=== PATIENT | female | born 1960 | race African-American/Black ===

== ENCOUNTER 2019-09-14 00:58 | Inpatient (IN) ==
[2019-09-14] MEDS ORDERED: MORPHINE IV ONE (01:53)
[2019-09-14] MEDS ORDERED: ZOFRAN IV ONE (02:51)
--- NOTE | 2019-09-14 03:34 | PROVIDER DOCUMENTATION ---
HPI-Musculoskeletal Pain/Inj - GENERAL Chief Complaint: Extremity Injury Stated Complaint: fall Time Seen by Provider: 09/14/19 01:07 Source: patient, family, EMS - HX OF PRESENT ILLNESS-MUSKULOSKELTAL Nature of Presenting Problem: Patient is a 59 yo F with PMH of MS, osteoporosis, HTN, chronic asymmetric lower extremity edema (> 3 years per patient and family at bedside), arthritis, who was BIBEMS due to right knee injury. Patient uses a walker to ambulate at home and a wheelchair when outside of her home. 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 worse with: movement Any recent injury?: Yes (RLE hyperextension) Locality of Occurance: Home Similar Symptoms Previously?: No Recently seen or treated by another doctor?: No - FALL INJURY Location of Pain/Injury: reports: lower extremity (Right knee) Pain Radiation: reports: no radiation Reason for Fall: reports: other (Patient states her right leg "gave out" and hyperextended followed by a loud "pop") Symptoms prior to fall:: reports: none Loss of Consciousness: no loss of consciousness Injury Associated Symptoms: reports: joint pain (generalized right knee pain), unable to bear weight, trouble walking. denies: back/neck pain, chest pain, shortness of breath - BACK & NECK PAIN/INJURY Back/Neck Pain Location: denies: C-spine, T-spine, lumbar spine, sacrum, coccyx, paraspinous muscles Associated Symptoms: reports: denies symptoms - TRUNK INJURY Location of Injury(s)/Pain: denies: chest, abdomen Associated Symptoms: reports: denies symptoms - HIP/PELVIS PAIN/INJURY Hip Pain Location: denies: hip (R), hip (L), pelvis Associated Symptoms: reports: denies symptoms - LOWER EXTREMITY PAIN/INJURY Lower Extremities Pain: knee: right (Patient states her right leg "gave out" and hyperextended followed by a loud "pop" and acute knee pain ) Context / Method of Injury: reports: other (Hyperextended right leg) Associated Symptoms: reports: denies symptoms Review of Systems - Adult - REVIEW OF SYSTEMS - ADULT Constitutional: denies: chills, fever Eyes: reports: no symptoms reported Ears, Nose, Mouth & Throat: reports: no symptoms reported Cardiovascular: reports: edema (Chronic, on Lasix). denies: chest pain, palpitations, syncope Respiratory: reports: no symptoms reported Gastrointestinal: reports: no symptoms reported Genitourinary: reports: no symptoms reported Musculoskeletal: reports: joint pain (Right knee), joint swelling (Right knee) Integumentary: reports: no symptoms reported Neurological: reports: no symptoms reported Psychiatric: reports: no symptoms reported Endocrine: reports: no symptoms reported Hematologic/Lymphatic: reports: lymphedema (Bilateral LE) Allergic/Immunologic: reports: no symptoms reported All Other Systems: Reviewed and Negative Past History - Adult - PAST MEDICAL HISTORY-ADULT Review of Records: reports: Nursing Assessment Review, Medications Reviewed, Social history reviewed & non-contributory. Major Childhood Illnesses: reports: denies history Cardiovascular: reports: HTN, other (Chronic asymetric LE edema) Musculoskeletal: reports: arthritis, osteoporosis Neurological: reports: Multiple Sclerosis - PRIOR SURGERIES/PROCEDURES Surgical/Procedure History: reports: appendectomy, hysterectomy, - IMMUNIZATION STATUS Childhood Immunizations: See Nurse Assessment Flu Vaccine: See Nurse Assessment - FAMILY HISTORY Family History: reviewed, not pertinent - SOCIAL HISTORY Smoking: denies Substance Use: none/never Physical Exam-Injury Related - Physical Exam-Injury Related Initial Vital Signs Reviewed: Yes (BP 136/80 on monitor) General Appearance: appears well, alert, no apparent distress, thin Eyes: PERRL/EOMI, pink conjunctivae Head, Ears, Nose, Mouth & Throat: normocephalic/atraumatic, moist mucous membranes Neck: normal inspection Respiratory: chest non-tender, lungs clear, normal breath sounds, no respiratory distress Cardiovascular: normal peripheral pulses, regular rate, rhythm, other (+ bilateral LE edema, R > L) Peripheral Pulses: dorsalis-pedis (R): 2+, dorsalis-pedis (L): 2+ Abdominal Exam: normal bowel sounds, non tender, soft, no organomegaly Female Genitalia/Pelvic Exam: deferred Rectal Exam: deferred Lymphatic: no adenopathy Back Exam: normal inspection, no CVA tenderness, no vertebral tenderness Extremity: deformity (Rt knee swelling), swelling (Right knee), other (Unable to assess right knee ROM 2/2 pain). negative: calf tenderness, erythema Neurologic: motor weakness (Chronic LE weakness 2/2 MS) Psych/Mental Status: normal mood/affect Progress - PLAN OF CARE/RESULTS Progress/Plan/Lab Results: Vital Signs - 8 hr 09/14/19 01:23 09/14/19 01:25 09/14/19 01:26 Temperature 97.5 F L Pulse Rate 86 Respiratory Rate 18 Blood Pressure 144/89 144/89 O2 Sat by Pulse Oximetry 99 100 09/14/19 01:29 09/14/19 01:30 09/14/19 01:45 Temperature Pulse Rate Respiratory Rate Blood Pressure 133/87 O2 Sat by Pulse Oximetry 99 98 99 09/14/19 01:59 09/14/19 02:01 09/14/19 02:15 Temperature Pulse Rate Respiratory Rate Blood Pressure 129/71 O2 Sat by Pulse Oximetry 99 99 100 Laboratory Results - last 24 hr 09/14/19 03:04 PT 13.3 INR 1.00 PTT (Actin FS) 34.5 Orders Category Date Time Status Ice Pack to affected area DIRECTED Care 09/14/19 01:29 Active Immobilize/Elevate Affctd Extr NOW Care 09/14/19 01:29 Active Notify Physician As Ordered Care 09/14/19 01:29 Active OCL Splint DIRECTED Care 09/14/19 04:32 Active Saline Loc NOW Care 09/14/19 01:46 Active ANKLE COMPLETE RIGHT [RAD] Stat Exams 09/14/19 02:38 Taken KNEE 3 VIEWS RIGHT [RAD] Stat Exams 09/14/19 01:44 Taken CBC WITH ELECTRONIC DIFF [HEME] Stat Lab 09/14/19 04:24 Uncollected COMPREHENSIVE METABOLIC PANEL [CHEM] Stat Lab 09/14/19 04:24 Uncollected PROTIME WITH INR [COAG] Stat Lab 09/14/19 03:04 Completed PTT [COAG] Stat Lab 09/14/19 03:04 Completed TYPE & SCREEN [BBK] Stat Lab 09/14/19 04:31 Uncollected URINALYSIS W/POSS RFLX CULT [URINALYSIS] Stat Lab 09/14/19 04:29 Uncollected Morphine Med 09/14/19 01:53 Discontinued 4 mg IV NOW ONE Ondansetron [Zofran] Med 09/14/19 02:51 Discontinued 4 mg IV NOW ONE Extremity Injury Stat Ot 09/14/19 01:29 Ordered Order X-ray of Affected Extremity Stat Ot 09/14/19 01:29 Ordered - XRAY 1 XRAY Study: Tibia/Fibula (Proximal, spiral, minimally displaced, right fibular fracture. Displaced fracture of the right mid-distal tibial shaft.) - CONSULTS/PCP/HOSPITALIST Notification #1 *Consult/PCP/Hospitalist*: Orthopaedist Time Discussed: 04:38 (Dr. Maldonado) Reason/Comments: Right tib/fib fractures Consult Disposition: Admit #2 Consult: Hospitalist Time Discussed: 04:54 (Dr. Sanchez ) Reason/Comments: Tib/fib fractures, h/o MS, HTN, osteoporosis, chronic LE edema Consult Disposition: Admit Procedures - SPLINTING Right Lower Extremity Pre-Procedure Neurovascular Exam: Intact Splint Application (Hand-Made): Long, Posterior OCL Applied By: safety representative Assisted By: ED Nurse Post Procedure Neurovascular Exam: Intact Departure - Departure Date of Disposition Decision: 09/14/19 Time of Disposition Decision: 04:30 DIAGNOSIS: Multiple sclerosis Tibia fracture Qualifiers: Encounter type: initial encounter Tibia location: shaft Fracture type: closed Fracture morphology: spiral Fracture alignment: displaced Laterality: right Qualified Code(s): S82.241A - Displaced spiral fracture of shaft of right tibia, initial encounter for closed fracture Closed right fibular fracture Qualifiers: Encounter type: initial encounter Fibula location: shaft Fracture morphology: spiral Fracture alignment: displaced Qualified Code(s): S82.441A - Displaced spiral fracture of shaft of right fibula, initial encounter for closed fracture Hypertension Qualifiers: Hypertension type: essential hypertension Qualified Code(s): I10 - Essential (primary) hypertension Disposition: ADMITTED INPATIENT 09 Certified Medical Emergency: Emergent Condition: Good - Critical Care Note This patient required my direct & personal management of CC.: Yes Total Time (mins): 45 Critical Care Statement: This patient required my direct personal management to treat or rule out processes, the absence of which, could potentiallly result in sudden, clinically significant life or limb threatening deterioration. Attestation - Physician/ DHIRAJ Attestation Patient care was provided by Advanced Practice Provider:: No The physician spent face to face time with patient:: Yes Advanced Practice Provider documentation review:: Supervising physician onsite and consulted in the evaluation and care of this patient. The physician did have a face to face encounter with the patient.
[2019-09-14 04:45] LABS: PROTIME 13.3 Seconds (11.0-16.0)
[2019-09-14 04:46] LABS: PTT 34.5 Seconds (22.3-41.8)
[2019-09-14 05:23] LABS: BASO# 0.02 X1000 (0.0-0.2); BASO% 0.2 % (0.0-0.8); EOS# 0.11 X1000 (0.0-0.7); EOS% 1.1 % (0.0-10.0); HEMATOCRIT 32.2 % (37.0-47.0); HEMOGLOBIN 10.2 g/dL (12.0-16.0); IMM GRAN# 0.03 X1000 (0.0-0.04); IMM GRAN% 0.3 % (0.0-0.5); LYMPH# 2.79 X1000 (1.2-3.4); LYMPH% 28.8 % (20.5-51.1); MCHC 31.7 g/dL (33-37); MCV 75.8 FL (81-99); MONO# 0.86 X1000 (0.11-0.59); MONO% 8.9 % (1.7-9.3); MPV 10.6 FL (7.4-10.4); NEUT# 5.87 X1000 (1.4-6.5); NEUT% 60.7 % (42.2-75.2); PLT 284 X1000 (130-400); RBC 4.25 XMIL (4.2-5.4); RDW 15.3 % (11.5-14.5); WBC 9.68 X1000 (4.8-10.8)
[2019-09-14 05:51] LABS: AGAP 11; ALB/GLOB RATIO 1.2; ALBUMIN 3.8 g/dL (3.5-5.0); ALKALINE PHOSPHATASE 85 U/L (32-104); BUN 18 mg/dL (8-22); CALCIUM 9.7 mg/dL (8.8-10.2); CHLORIDE 101 mmol/L (98-107); COSMO 283; ESTIMATED GFR > 60; GLUCOSE 92 mg/dL (70-104); GOT 17 U/L (10-30); GPT 10 U/L (10-36); POTASSIUM 3.9 mmol/L (3.5-5.1); SODIUM 141 mmol/L (136-145); TCO2 29 mmol/L (25-35); TOTAL BILIRUBIN 0.22 mg/dL (0.20-1.00)
--- NOTE | 2019-09-14 06:30 | HISTORY AND PHYSICAL ---
PRIMARY CARE PHYSICIAN: Unknown. CHIEF COMPLAINT: Fall. HISTORY OF PRESENTING ILLNESS: A 59-year-old female with a history of hypertension and multiple sclerosis. Apparently, she was going to the charge her cell found when somehow her right knee buckled, and she landed on the carpet. She was brought to the emergency department. She had imaging done which did show a right tib fracture. Her case was discussed with Orthopedics who recommended admission for further management. At the time of my examination, patient denied any headache, fever, chills, chest pain, shortness of breath, hemoptysis, or weight changes, but complained of right leg pain. PAST MEDICAL HISTORY: Includes hypertension and multiple sclerosis. PAST SURGICAL HISTORY: Hysterectomy and appendectomy. ALLERGIES: No known drug allergies. CURRENT MEDICATION: She does not recall. Nursing staff will reconcile. SOCIAL HISTORY: No history of smoking, alcohol or illicit drug use. FAMILY HISTORY: No history of coronary disease. REVIEW OF SYSTEMS: Fourteen point review of systems listed as in HPI. Other systems negative. PHYSICAL EXAMINATION: GENERAL: Cooperative friendly female. She is resting more comfortably now. VITAL SIGNS: Temperature 97.5 degrees, pulse 86, respirations 18, and blood pressure 144/89. HEENT: Extraocular movements intact. PERRLA. NECK: No masses. CHEST: Clear to auscultation. CARDIOVASCULAR: Regular rate and rhythm. ABDOMEN: Soft. Positive bowel sounds. EXTREMITIES: Right lower extremity tenderness. NEUROLOGIC: She is awake, alert, and oriented x3. : No bladder distention. SKIN: Warm. LABORATORIES AND STUDIES: WBCs 9.68, hemoglobin 10.2, hematocrit 32.2, and platelets 284,000. Sodium 141, potassium 3.9, chloride 101, CO2 is 29, BUN is 18, creatinine is 1.0, and glucose 92. ASSESSMENT: A 59-year-old female with a history of hypertension and multiple sclerosis who apparently fell as she was going to charge her cell phone. She was evaluated in the emergency department. She had imaging done which did show a right tib fracture. Subsequently, she will require admission for further management. 1. Right tibia-fibula fracture. 2. Hypertension. 3. Multiple sclerosis. PLAN: 1. We will admit patient to medical floor with telemetry. 2. We will keep patient NPO. Continue with supportive treatment with IV gentle hydration and antiemetics pain control. 3. Orthopedics has been consulted. 4. Monitor blood pressure closely. Resume antihypertensive agent. 5. We will start DVT prophylaxis after her surgery. 6. We will continue to follow and reassess. Make further recommendations based on patient's clinical course. cc: Cristo Sanchez MD
--- NOTE | 2019-09-14 07:49 | Diag Imaging Result Doc PS360 ---
EXAM: ANKLE COMPLETE RIGHT INDICATION: Right proximal fibular fracture, r/o secondary fx TECHNIQUE: 3 views COMPARISON: None. FINDINGS: There is a spiral fracture involving the mid and distal shaft of the tibia. There is mild anterior displacement of the distal fracture fragment. There is a known nondisplaced oblique fracture involving the proximal shaft of the fibula that is better appreciated on the dedicated plain radiograph of the knee performed at the same time. There is diffuse soft tissue edema around the lower leg. IMPRESSION: Fracture of the mid to distal tibia and proximal fibula as described. Electronically signed by Percy Palomo 09/14/2019 7:47 AM
--- NOTE | 2019-09-14 07:53 | Diag Imaging Result Doc PS360 ---
EXAM: KNEE 3 VIEWS RIGHT INDICATION: Right knee injury r/o fracture TECHNIQUE: 3 views COMPARISON: None. FINDINGS: There is a nondisplaced oblique fracture involving the proximal shaft of the fibula. There is also a tibial shaft fracture seen on a dedicated plain radiograph of the lower leg performed the same time that is largely out of the [id number] on the current study. In addition, there is some depression of the lateral tibial plateau as seen on the anterior view that could represent a tibial plateau fracture. There are degenerative changes at the knee, most prominent at the lateral compartment. There is surrounding soft tissue edema and a small joint effusion. IMPRESSION: Fracture of the proximal fibular shaft and possible depressed fracture of the lateral tibial plateau. Please see separate lower leg radiograph report for details of a distal tibial shaft fracture as well. Electronically signed by Percy Palomo 09/14/2019 7:50 AM
[2019-09-14] MEDS ORDERED: MORPHINE IV PRN (08:24)
[2019-09-14] MEDS ORDERED: NS 1,000 ML IV SCH (08:24)
[2019-09-14] MEDS ORDERED: ZOFRAN IV PRN ×2 (08:24→17:39)
[2019-09-14] MEDS ORDERED: FLU VACCINE IM ONE (08:46)
--- NOTE | 2019-09-14 12:22 | ORTHOPAEDICS CONSULTATION ---
DATE: 09/14/2019 CHIEF COMPLAINT: Right leg pain. HISTORY OF PRESENT ILLNESS: Ms Vela is a 59-year-old female who presented to the Emergency Department early this morning after she fell while trying to plug in her phone. She does have a history of MS and she really does not walk that much, but she does stand and transfer. She fell and felt a pop. She was diagnosed with a tibia fracture, and we were consulted from an orthopedic standpoint. PAST MEDICAL HISTORY: Hypertension. Multiple sclerosis. PAST SURGICAL HISTORY: Hysterectomy and appendectomy. ALLERGIES: No known drug allergies. MEDICATIONS: Per the medical record. SOCIAL HISTORY: She denies any smoking or alcohol use. REVIEW OF SYSTEMS: Positive for this right leg pain. All other systems are essentially negative other than as mentioned above under her HPI. PHYSICAL EXAMINATION: General: Ms. Vela is lying in bed. Pain seems controlled. She is in no acute distress. Head and Neck: Normocephalic, atraumatic. Respirations: Nonlabored breathing. Cardiovascular: Regular rate. Abdomen: Nondistended. Extremities: Right lower extremity exam, she has a splint that is clean, dry, and intact. She can move the toes a little bit, and she can feel me touch. She has good capillary refill to the toes. RADIOGRAPHS: Several views of the right lower extremity show a midshaft tibia fracture and proximal fibula fracture. ASSESSMENT: Right midshaft tibia fracture and proximal fibula fracture. PLAN: I discussed with Ms. Vela and her family member about operative intervention, which would be an intramedullary nailing of the right tibia. I went over with her the procedure, risks, benefits, and potential complications. Risks include, but are not limited to infection, wound healing problems, damage to nerves, arteries, veins, numbness, malunion, nonunion, hardware related issues, continued pain, DVT, and anesthesia related risks. After discussing these with the patient, she expressed understanding and wished to proceed. We will try and get her on the schedule for today. If we are not able to do it today, then she will likely go tomorrow. I did discuss with her that it would be either myself Dr. Herrera or Dr. Sexton doing the surgery. She was okay with that as well. She is nonweightbearing right lower extremity until surgery, and she is n.p.o. for now. cc: Tenzin Maldonado MD
[2019-09-14] MEDS ORDERED: XYLOCAINE-MPF 2% ONE (12:54)
[2019-09-14] MEDS ORDERED: DIPRIVAN 1% ONE ×2 (12:54→12:58)
[2019-09-14] MEDS ORDERED: KEFZOL 1 GM/D5W 1 GM/50 ML IVPB ONE (13:25)
[2019-09-14] MEDS ORDERED: FENTANYL ONE (13:26)
[2019-09-14] MEDS ORDERED: SENSORCAINE 0.5%-EPI 1:200,000 ONE (13:38)
[2019-09-14] MEDS ORDERED: MARCAINE 0.25% ONE (13:41)
[2019-09-14] MEDS ORDERED: OFIRMEV 1000 MG/ISOTONIC SOLN 1,000 MG/100 ML BOTTLE ONE (14:36)
[2019-09-14] MEDS ORDERED: ZOFRAN ONE (14:39)
[2019-09-14] MEDS ORDERED: DECADRON ONE (14:39)
[2019-09-14] MEDS ORDERED: DILAUDID ONE (15:24)
[2019-09-14] MEDS ORDERED: ANTILIRIUM IV ONE (16:30)
[2019-09-14] MEDS ORDERED: MILK OF MAGNESIA PO PRN (17:39)
[2019-09-14] MEDS ORDERED: HALDOL IV PRN (17:45)
[2019-09-14] MEDS: TYLENOL PO SCH (20:22)
--- NOTE | 2019-09-14 22:06 | OPERATIVE NOTE ---
PROCEDURE DATE: 09/14/2019 PREOPERATIVE DIAGNOSIS: Right displaced distal tibial shaft fracture with associated fibular fracture. POSTOPERATIVE DIAGNOSIS: Right displaced distal tibial shaft fracture with associated fibular fracture. PROCEDURE: Intramedullary nailing of the right tibia with a Synthes 11 x 315 mm tibial nail. SURGEON: Johnny Herrera MD. TOE TRIMMER: KEYONNA Gallardo who was necessary for proper positioning, retraction and manipulation of the extremity during the case. SECOND EMERGENCY CARE ATTENDANT: Mayo Olson RN. ANESTHESIA: General. IV FLUIDS: 1200 mL lactated Ringer. ESTIMATED BLOOD LOSS: 50 mL. TOURNIQUET TIME: Approximately 5 minutes at 350 mmHg. COMPLICATIONS: None. INDICATIONS: The patient is a pleasant 59-year-old female who is status post fall last evening. She presented to the emergency room, and x-ray revealed displaced tibia and fibular fracture. Given patient's findings, recommendation to proceed with intramedullary nailing was offered. Risks and benefits of surgery were explained, including the risks of anesthesia, , bleeding, infection, failure to relieve pain, postoperative stiffness, nerve injury, blood clots, and other imponderables. All questions were answered. Patient and family wished to proceed. PROCEDURE IN DETAIL: The patient was taken to the operating room and placed supine on the operating table. Once adequate anesthesia was obtained, the patient's right lower extremity was prepped and draped in usual sterile fashion. Esmarch was used to exsanguinate the right lower extremity, and tourniquet was inflated to 300 mmHg. A standard anterior incision was made over the patellar tendon. Careful dissection was performed through the superficial fascia. The medial retinaculum was then incised longitudinally. A guide pin was then placed on the proximal tibia and was advanced. Good position in both AP and lateral projections. Starting reamer was then passed. A ball-tip guide pin was then placed in the intramedullary canal and across the fracture site while maintaining the reduction. Length of nail was determined to be 350 mm. After this had been confirmed, sequential reaming was conducted up to size 12.5 in preparation for 11 mm diameter nail. An 11 x 350 mm Synthes tibial nail was then placed over the ball-tip guide pin. Ball-tip guide pin was then removed. Had good position of the hardware and good alignment of the fracture in both AP and lateral projections. After this had been performed, after proper seating of the nail, a ball-tip guide pin was removed. Using the outrigger guide, 2 locking screws were placed medial and lateral on the proximal tibia. After this had been performed, attention was then turned to the distal tibia were 2 distal locking screws were then placed through 2 stab incisions using a perfect [place] technique. Final C-arm positioned with good alignment of the fracture and good position of the hardware. The wounds were copiously irrigated, and #1 Vicryl was used to repair the medial retinaculum and followed by the peritenon was then repaired in a running fashion using 2-0 Vicryl. 2-0 Vicryl was then used to repair the subcutaneous tissue and the proximal wounds followed by skin chris in all the wounds. Sterile 4x4s, Webril and a posterior splint with a stirrup was applied to the right lower extremity. Patient tolerated the procedure well with no complications and transferred to the recovery room in stable condition. cc: Johnny Herrera MD
[2019-09-14] MEDS: NS 1,000 ML IV SCH (23:21)
[2019-09-15] MEDS: COLACE PO SCH ×2 (00:18→22:32)
[2019-09-15] MEDS: KEFZOL 1 GM/D5W 1 GM/50 ML IVPB IV SCH ×2 (00:19→05:34)
[2019-09-15] MEDS: TYLENOL PO SCH ×3 (04:11→22:32)
[2019-09-15] MEDS: XARELTO PO SCH (05:34)
[2019-09-15 06:43] LABS: BASO# 0.03 X1000 (0.0-0.2); BASO% 0.3 % (0.0-0.8); EOS# 0.01 X1000 (0.0-0.7); EOS% 0.1 % (0.0-10.0); HEMATOCRIT 27.8 % (37.0-47.0); HEMOGLOBIN 8.9 g/dL (12.0-16.0); IMM GRAN# 0.03 X1000 (0.0-0.04); IMM GRAN% 0.3 % (0.0-0.5); LYMPH# 2.41 X1000 (1.2-3.4); LYMPH% 23.2 % (20.5-51.1); MCH 24.8 PG (27-31); MCV 77.4 FL (81-99); MONO# 1.54 X1000 (0.11-0.59); MONO% 14.8 % (1.7-9.3); NEUT# 6.36 X1000 (1.4-6.5); NEUT% 61.3 % (42.2-75.2); PLT 233 X1000 (130-400); RBC 3.59 XMIL (4.2-5.4); RDW 15.5 % (11.5-14.5); WBC 10.38 X1000 (4.8-10.8)
[2019-09-15 07:31] LABS: AGAP 14; BUN 13 mg/dL (8-22); CALCIUM 8.8 mg/dL (8.8-10.2); CHLORIDE 103 mmol/L (98-107); COSMO 279; CREATININE 0.9 mg/dL (0.5-0.9); ESTIMATED GFR > 60; GLUCOSE 119 mg/dL (70-104); POTASSIUM 4.5 mmol/L (3.5-5.1); SODIUM 139 mmol/L (136-145); TCO2 22 mmol/L (25-35)
[2019-09-15] MEDS: MORPHINE IV PRN (07:59)
[2019-09-15] MEDS: FERROUS SULFATE PO SCH (08:05)
--- NOTE | 2019-09-15 12:00 | ORTHOPAEDICS PROGRESS NOTE ---
DATE: 09/15/2019 SUBJECTIVE: Ms. Vela is resting in bed comfortably at this time. She denies any complaints this morning. She states her leg feels better than it did yesterday. OBJECTIVE: Ms. Vela has been sleeping up until my exam. She denies any pain at present. She is able to move her toes in the splint, and her sensation is intact distally. Her splint is in place and there are no signs of any drainage through the splint. ASSESSMENT: Postoperative day 1 of an intramedullary nailing of the right tibia. PLAN: We will continue her nonweightbearing and have physical therapy work with her. Dictated by KEYONNA Gallardo for Johnny Herrera MD cc: Johnny Herrera MD MTDD
--- NOTE | 2019-09-15 12:05 | ORTHOPAEDICS PROGRESS NOTE ---
DATE: 09/15/2019 ADDENDUM: ASSESSMENT: Her labs are back this morning, and her hemoglobin and hematocrit have dropped from 10.2 and 32.2 to 8.9 and 27.8. Otherwise, her labs have remained stable. Dictated by KEYONNA Gallardo for Johnny Herrera MD cc: Johnny Herrera MD
[2019-09-15] MEDS: NS 1,000 ML IV SCH ×2 (12:09→17:57)
--- NOTE | 2019-09-15 14:26 | PROGRESS NOTE ---
DATE: 09/15/2019 INTERVAL HISTORY: Patient status post operative repair of right tib-fib fracture yesterday afternoon. Pain well controlled. No new complaints. No acute events overnight. REVIEW OF SYSTEMS: Twelve point review of systems negative except as per interval history. LABORATORY: WBC 10.3, hemoglobin 8.9, hematocrit 27.8, and platelets 233,000. Basic metabolic panel unremarkable aside from glucose 119. VITALS: T-max 98.7 degrees, pulse 99, respirations 17, blood pressure 124/59, and O2 saturation 99% on room air. PHYSICAL EXAMINATION: General: No acute distress. Vitals: As above. HEENT: Normocephalic, atraumatic. Moist mucous membranes. No cervical adenopathy. Cardiovascular: Regular rate and rhythm. No murmurs noted. Pulmonary: Clear to auscultation bilaterally. No wheezing, rales, or rhonchi. Abdomen: Soft, nontender, nondistended. Bowel sounds positive. Extremities: Peripheral pulses intact. Right lower extremity heavily bandaged. Neurologic: Right hand weakness and mild contracture stable. No new focal deficits identified. Psychiatric: Normal mood and affect. Awake, alert, and oriented x3. Skin: No new rashes or lesions identified. ASSESSMENT AND PLAN: 1. Right tib-fib fracture status post surgical repair by Dr. Herrera. We will see how patient does with physical therapy. He may be able to go home with home health, but suspect she will not need rehab. Could potentially go tomorrow. 2. Anemia. A little bit of a drop after surgery likely expected postop blood loss. Will monitor but no need for further intervention at this time. No need for transfusion. 3. Multiple sclerosis. We have asked the patient to bring up her home MS medications. If that is brought up, we will get pharmacy to label that and continue with it. 4. Hypertension. Holding home Lasix in the setting of operation and pain medication. Blood pressure has been pretty normal thus far. If it becomes elevated, we will consider restarting home Lasix.
[2019-09-16] MEDS: XARELTO PO SCH (06:36)
[2019-09-16] MEDS: TYLENOL PO SCH ×2 (06:36→21:42)
[2019-09-16 06:39] LABS: BASO# 0.03 X1000 (0.0-0.2); BASO% 0.3 % (0.0-0.8); HEMATOCRIT 27.7 % (37.0-47.0); HEMOGLOBIN 8.8 g/dL (12.0-16.0); IMM GRAN# 0.03 X1000 (0.0-0.04); IMM GRAN% 0.3 % (0.0-0.5); LYMPH# 2.83 X1000 (1.2-3.4); MCH 24.3 PG (27-31); MCHC 31.8 g/dL (33-37); MCV 76.5 FL (81-99); MONO# 1.25 X1000 (0.11-0.59); MONO% 12.4 % (1.7-9.3); MPV 9.6 FL (7.4-10.4); NEUT# 5.88 X1000 (1.4-6.5); PLT 295 X1000 (130-400); RBC 3.62 XMIL (4.2-5.4); RDW 15.6 % (11.5-14.5); WBC 10.12 X1000 (4.8-10.8)
[2019-09-16 07:05] LABS: AGAP 9; BUN 11 mg/dL (8-22); CALCIUM 8.7 mg/dL (8.8-10.2); CHLORIDE 110 mmol/L (98-107); COSMO 290; CREATININE 0.8 mg/dL (0.5-0.9); ESTIMATED GFR > 60; GLUCOSE 132 mg/dL (70-104); POTASSIUM 4.1 mmol/L (3.5-5.1); SODIUM 145 mmol/L (136-145); TCO2 26 mmol/L (25-35)
[2019-09-16 09:03] LABS: URINE SOURCE CATH
[2019-09-16 09:08] LABS: BILIRUBIN URINE NEGATIVE (NEGATIVE); BLOOD URINE NEGATIVE (NEGATIVE); COLOR YELLOW; GLUCOSE URINE NEGATIVE (NEGATIVE); KETONE URINE NEGATIVE (NEGATIVE); LEUKOCYTES URINE NEGATIVE (NEGATIVE); NITRITE URINE NEGATIVE (NEGATIVE); PROTEIN URINE NEGATIVE (NEGATIVE); SP GRAVITY URINE 1.011; TURBIDITY URINE CLEAR (CLEAR); UR EPITHELIAL CELLS <10 /HPF (<10); URINE BACTERIA NEGATIVE /HPF; URINE RBC <10 /HPF (<10); URINE WBC <10 /HPF (<10); UROBILINOGEN URINE NORMAL (NORMAL)
[2019-09-16] MEDS: FERROUS SULFATE PO SCH (11:13)
--- NOTE | 2019-09-16 12:41 | ORTHOPAEDICS PROGRESS NOTE ---
DATE: 09/16/2019 SUBJECTIVE: The patient is a pleasant 59-year-old female who is 2 days status post intramedullary nailing for right tibia fracture. She is currently resting comfortably. PHYSICAL EXAMINATION: The patient's right lower extremity splint is intact. Compartments are soft. She is able flex inner toes. LABORATORY DATA: Pending. IMPRESSION: Postoperative day #2 status post intramedullary nailing of the right tibia. The patient will be maintained on nonweightbearing right lower extremity. DISCHARGE PLANNING: Food And Beverage Analyst been consulted for discharge planning. Patient will follow up in the office in approximately 2 weeks staple removal. cc: Johnny Herrera MD
--- NOTE | 2019-09-16 13:34 | PROGRESS NOTE ---
DATE: 09/16/2019 INTERVAL HISTORY: The patient's pain is well controlled. No acute events overnight. No other complaints. REVIEW OF SYSTEMS: A 12 point review of systems is negative except as per the interval history. LABS: WBC 10.1, hemoglobin 8.8, hematocrit 27.7, and platelets 295. Sodium 145, potassium 4.1, bicarb 26, BUN 11, creatinine 0.8, and glucose 132. Urinalysis unremarkable. VITAL SIGNS: T-max 98.6, pulse 94, respirations 18, blood pressure 117/62, and O2 saturation 100% on room air. PHYSICAL EXAMINATION: General: No acute distress. Vitals: As above. HEENT: Normocephalic, atraumatic. Moist mucous membranes. Neck: No cervical adenopathy. Cardiovascular: Regular rate and rhythm. No murmurs noted. Pulmonary: Clear to auscultation bilaterally. No wheezing, rales, or rhonchi. Abdomen: Soft, nontender, and nondistended. Bowel sounds positive. Extremities: Peripheral pulses intact. Right lower extremity remains heavily bandaged. Neurologic: Stable right hand weakness and mild contracture. No new focal deficits. Psychiatric: Awake, alert, and oriented times 3. Normal mood and affect. Skin: Warm and dry. No new rashes. ASSESSMENT AND PLAN: 1. Right tibia and fibula fracture status post surgical repair by Dr. Herrera. The patient is not weightbearing on the right foot and has not done a whole lot with physical therapy thus far. Initially I thought that she would likely go to rehab but the patient is now pretty adamant about going home. We will see how she does with physical therapy and go from there. 2. Anemia, a little bit of a drop postoperatively but stable since then. Monitor. No signs or symptoms of ongoing bleeding. 3. Multiple sclerosis. I have asked the patient to have her family bring up her home MS medication. We will start that if it is brought up. Symptoms are pretty stable. 4. Hypertension. She has been pretty much normotensive here off of her home Lasix. We will continue holding for now but restart if blood pressure becomes significantly elevated. DISPOSITION: If the patient was going to a SNF she could potentially go today. As she is going home we will probably need to see how she does with physical therapy as she did not do very well yesterday. Anticipate discharge to Home Health if she does well with PT whenever she is cleared by Surgery. If she continues to do quite poorly we may have to talk to her further about recommending rehab. She does appear to have fairly decent family support at home as well as equipment.
[2019-09-16] MEDS: COLACE PO SCH (21:42)
[2019-09-16] MEDS: MORPHINE IV PRN (21:42)
[2019-09-17] MEDS: XARELTO PO SCH (05:15)
[2019-09-17] MEDS: TYLENOL PO SCH ×3 (05:15→21:22)
[2019-09-17] MEDS: FERROUS SULFATE PO SCH (09:31)
--- NOTE | 2019-09-17 15:16 | PROGRESS NOTE ---
DATE: 09/17/2019 SUBJECTIVE: The patient notes that she is feeling better. She was able to get up with assistance to the chair yesterday. She is still too weak to get up on her own. She did use a walker and ambulate a short distance. PHYSICAL EXAMINATION: Temperature 98, pulse 80, respiratory rate 18, BP 129/69.General: Patient is awake, alert, currently in no distress. HEENT: Normocephalic. Neck: Supple. Cardiovascular: Regular rate. No murmurs. Chest: Clear. Abdomen: Soft. Extremities: Moves all extremities. Neurologic: No focal changes. ASSESSMENT: 1. Right tib-fib fracture, status post repair. 2. Anemia, stable. 3. Multiple sclerosis. 4. Hypertension. 5. Generalized weakness. PLAN: We will continue patient in the hospital today given her continued weakness. Hopefully, her strength will improve today and she can be discharged home tomorrow. Discussed with her to stay in a chair longer today to ambulate with physical therapy and if improved, we can discharge her in the a.m. cc: Lucas Vora MD
[2019-09-17] MEDS: NS 1,000 ML IV SCH (15:54)
--- NOTE | 2019-09-17 18:11 | ORTHOPAEDICS PROGRESS NOTE ---
DATE: 09/17/2019 SUBJECTIVE: Amie Vela is a 59-year-old female patient of Dr. Herrera, who underwent a nailing of her tibia on Thursday. She has made minimal progress with physical therapy; however, she wants to go home and not to rehab. OBJECTIVE: She is a well-developed, well-nourished female. She is alert and cooperative with exam. Her dressing is clean, dry and intact. Her foot is neurovascularly intact. ASSESSMENT: Stable right tibial and fibular fracture. PLAN: When she is ambulating safely, she can be discharged home. I expect this will be at least Thursday. cc: Kevin Medina MD
[2019-09-17] MEDS: COLACE PO SCH (21:22)
[2019-09-18] MEDS: TYLENOL PO SCH ×4 (05:34→22:11)
[2019-09-18] MEDS: XARELTO PO SCH (05:34)
[2019-09-18] MEDS: FERROUS SULFATE PO SCH (08:16)
--- NOTE | 2019-09-18 09:46 | ORTHOPAEDICS PROGRESS NOTE ---
DATE: 09/18/2019 SUBJECTIVE: Amie Vela is a 59-year-old female status post right tibial nailing. She has minimal pain that is controlled with p.o. pain medicine. However, she has had little progress with physical therapy. OBJECTIVE: She is a well-developed, well-nourished female. She is alert, oriented, and cooperative with exam. She can flex and extend her toes, has brisk capillary refill and intact sensation. IMPRESSION: Right tibial nailing. PLAN: I do not feel it is safe for her to go home yet as she has actually only been up to the chair 1 time. I think we should at least hold her until tomorrow, and then Physical Therapy work with her tomorrow and see if she can ambulate. Depending upon her therapy, she may still need to go to rehab, even though she definitely wants to go home. cc: Kevin Medina MD
--- NOTE | 2019-09-18 14:27 | PROGRESS NOTE ---
DATE: 09/18/2019 SUBJECTIVE: The patient has no new complaints. Does note that she feels a little bit stronger, was able to move a little bit yesterday. She has brought her walker up today to assist with physical therapy. PHYSICAL EXAMINATION: Vitals: Temperature 98 degrees, pulse 90, respiratory rate 20, BP 131/80. General: Patient is awake, pleasant. She is in no respiratory distress. HEENT: Normocephalic. Neck: Supple. Cardiovascular: Regular rate. Chest: Clear, nonlabored. Abdomen: Soft, nondistended. Extremities: She is able to move all extremities although still has weakness. ASSESSMENT: 1. Right tibia-fibula fracture status post repair. 2. Anemia stable at 8 and 27. 3. Multiple sclerosis. 4. Hypertension. 5. Generalized weakness. PLAN: Patient again asking to go home. Discussed with her that she needs to be able to ambulate a little bit better than she currently can for that to be a reality. I certainly would prefer her to go to rehab, but currently she is declining this. We are going to give her another day in the hospital with physical therapy and then hopefully can discharge tomorrow. cc: Lucas Vora MD
[2019-09-18] MEDS: COLACE PO SCH (22:12)
[2019-09-19] MEDS: NS 1,000 ML IV SCH ×2 (00:43→08:15)
[2019-09-19] MEDS: OXY IR PO PRN (02:00)
[2019-09-19] MEDS: TYLENOL PO SCH ×3 (05:39→21:38)
[2019-09-19] MEDS: XARELTO PO SCH (05:39)
[2019-09-19] MEDS: FERROUS SULFATE PO SCH (09:15)
--- NOTE | 2019-09-19 13:43 | PROGRESS NOTE ---
DATE: 09/19/2019 SUBJECTIVE: The patient notes that she is feeling fine. States she did get up and ambulate a little bit yesterday with physical therapy. PHYSICAL: Temperature 98, pulse 87, respiratory 18, BP 127/71.General: Patient is pleasant, she is in no respiratory distress. HEENT: Normocephalic. Neck: Supple. CV: Regular rate. Chest: Clear nonlabored. Abdomen: Soft, nondistended. Extremities: Moves all extremities. ASSESSMENT: 1. Right tibia-fibula fracture status post repair . 2. Anemia. 3. Multiple sclerosis. 4. Hypertension . 5. Generalized weakness. PLAN: Continue patient in the hospital today, continue physical therapy. Certainly feel as though rehab would be in her best interest but she continues to decline this. Hopefully she will be able to ambulate better today to be discharged home. Otherwise we need to continue to try to encourage physical therapy inpatient rehab bed status. cc: Lucas Vora MD MTDD
[2019-09-19] MEDS: COLACE PO SCH (21:38)
[2019-09-20] MEDS: XARELTO PO SCH (06:21)
[2019-09-20] MEDS: TYLENOL PO SCH ×3 (06:21→21:06)
[2019-09-20 06:46] LABS: HEMATOCRIT 26.8 % (37.0-47.0); HEMOGLOBIN 8.7 g/dL (12.0-16.0); MCH 25.1 PG (27-31); MCHC 32.5 g/dL (33-37); MCV 77.5 FL (81-99); MPV 8.9 FL (7.4-10.4); RBC 3.46 XMIL (4.2-5.4); RDW 15.4 % (11.5-14.5); WBC 8.97 X1000 (4.8-10.8)
[2019-09-20 07:12] LABS: AGAP 12; BUN 16 mg/dL (8-22); CALCIUM 9.1 mg/dL (8.8-10.2); CHLORIDE 109 mmol/L (98-107); COSMO 290; CREATININE 0.9 mg/dL (0.5-0.9); ESTIMATED GFR > 60; GLUCOSE 92 mg/dL (70-104); POTASSIUM 4.1 mmol/L (3.5-5.1); SODIUM 145 mmol/L (136-145); TCO2 24 mmol/L (25-35)
[2019-09-20] MEDS: FERROUS SULFATE PO SCH (09:00)
[2019-09-20] MEDS ORDERED: DULCOLAX PR ONE (11:14)
[2019-09-20] MEDS: MIRALAX PO SCH ×2 (12:36→21:05)
[2019-09-20] MEDS: LACTULOSE PO SCH ×2 (12:36→21:05)
[2019-09-20] MEDS: OXY IR PO PRN (12:36)
--- NOTE | 2019-09-20 12:59 | Diag Imaging Result Doc PS360 ---
EXAM: CHEST-1 VIEW 09/20/2019 HISTORY: rehab TECHNIQUE: AP portable upright at 1247 COMMENT: There is no evidence of acute cardiac or pulmonary disease. There is some deformity of the humeral head on the left which may be due to a Hill-Sachs deformity. IMPRESSION: No evidence of acute disease. Electronically signed by Paul Montes De Oca 09/20/2019 12:57 PM
--- NOTE | 2019-09-20 19:07 | PROGRESS NOTE ---
DATE: 09/20/2019 SUBJECTIVE: The patient is resting comfortably in bed. No acute events noted overnight. OBJECTIVE: Vital Signs: Temperature 98.2 degrees, blood pressure 116/66, heart rate 100, respirations 20, O2 saturation 98% on room air. General: This is a thin female lying in bed in no acute distress. Heart: S1, S2 normal. Tachycardic. Lungs: Equal air entry bilaterally. Abdomen: Positive bowel sounds. Soft, nontender, nondistended. Extremities: No edema, no cyanosis. Neurologic: The patient is alert and oriented x3. LABORATORY DATA: Hemoglobin 8.7, hematocrit 26, platelets 380,000, sodium 145, potassium 4.1, chloride 109, CO2 24, BUN 16, creatinine 0.9. IMAGING: Chest x-ray shows no acute disease. ASSESSMENT AND PLAN: 1. Status post intramedullary nailing of a right tibia fracture, slowly improving. The patient has agreed to go to inpatient rehab. Continue with physical therapy. 2. Constipation. We will start the patient on scheduled laxative therapy. DISPOSITION: The patient will be discharged to [facility] tomorrow. cc: Bella Lopez MD MTDD
[2019-09-20] MEDS: COLACE PO SCH (21:06)
[2019-09-21] MEDS: OXY IR PO PRN (00:13)
[2019-09-21] MEDS: TYLENOL PO SCH (05:11)
[2019-09-21] MEDS: XARELTO PO SCH (05:11)
[2019-09-21 07:03] LABS: AGAP 8; BUN 17 mg/dL (8-22); CALCIUM 9.1 mg/dL (8.8-10.2); CHLORIDE 106 mmol/L (98-107); COSMO 283; CREATININE 0.9 mg/dL (0.5-0.9); ESTIMATED GFR > 60; GLUCOSE 95 mg/dL (70-104); POTASSIUM 4.6 mmol/L (3.5-5.1); SODIUM 141 mmol/L (136-145); TCO2 27 mmol/L (25-35)
[2019-09-21] MEDS: MIRALAX PO SCH (08:46)
[2019-09-21] MEDS: FERROUS SULFATE PO SCH (08:46)
[2019-09-21] MEDS: LACTULOSE PO SCH (08:46)
--- NOTE | 2019-09-21 11:08 | DISCHARGE SUMMARY ---
ADMISSION DATE: 09/14/2019 DISCHARGE DATE: FINAL DISCHARGE DIAGNOSES: 1. Status post intramedullary nailing of the right tibia fracture. 2. Constipation. 3. Anemia. 4. Multiple sclerosis CONSULTATIONS: Orthopedic consultation with Dr. Herrera. PROCEDURE: Intramedullary nailing of the right tibia. HOSPITAL COURSE: Ms. Vela is a 59-year-old female who presented to the ER after suffering a fall at home. On admission, an x-ray of the right knee was performed which revealed a fracture of the proximal fibular shaft, and a decompressed fracture of the lateral tibial plateau. In light of these findings, the patient was admitted to the hospitalist service. Orthopedic Surgery was then consulted. The patient was taken to the OR on 09/14/2019 at which time an intramedullary nailing of the right tibia was performed. The patient did well postoperatively. She was noted to be complaining of constipation, and was started on laxative therapy with good results. The patient participated with physical therapy, and it was decided that the patient would benefit from inpatient rehab placement. The patient is currently medically stable for discharge to [facility]. DISCHARGE MEDICATIONS: 1. Oxy-IR 5 mg oral every 6 hours p.r.n. for pain. 2. Ferrous Sulfate 325 mg oral daily. 3. MiraLAX 17 g oral twice a day. 4. Xarelto 10 mg p.o. daily x30 days. 5. Lactulose 30 mL oral twice a day p.r.n. for constipation. 6. Colace 200 mg oral at bedtime. 7. Baclofen 10 mg oral 3 times a day. 8. Dalfampridine 10 mg oral twice a day 9. Lasix 20 mg p.o. daily. DISCHARGE DIET: Regular diet. ACTIVITY: As tolerated. FOLLOWUP INSTRUCTIONS: The patient will need to follow up with Dr. Hawkins as scheduled to undergo her treatment for multiple sclerosis. The patient will need to follow up with on September 26, 2019. cc: Bella Lopez MD [facility]
[2019-09-21 12:13] VITALS: BP 122/70
== END 2019-09-21 13:38 | DRG 494 ==
LOC: ED 00:58 → 4N 07:12 → SUATTDRO 07:12
PROVIDERS: ATTEND Internal Medicine